=== PATIENT | female | born 1965 | race Caucasian/White ===

== ENCOUNTER 2024-09-15 10:00 | Emergency (ER) | payer OTHER, SELFPAY ==
[2024-09-15] VITALS (20 sets, daily range): BP systolic 116–174; BP diastolic 59–78; PULSE 61–84; RESP 12–21; TEMP 36.8; O2SAT 95–100; BMI 23.8
--- NOTE | 2024-09-15 10:20 | EKG_ITS ---
[address] [address] Test Date: 2024-09-15 Pat Name: Bozena Benjamin Department: Room: Gender: Female [employer]: LOGAN : 1965 Requested By: Order Number: [id number] Reading MD: Ej Monroy MD Measurements Intervals [place] Rate: 64 P: 63 CT: 148 QRS: 71 QRSD: 78 T: 42 QT: 410 QTc: 422 Interpretive Statements Normal sinus rhythm with sinus arrhythmia Electronically Signed On 09-15-2024 11:27:16 PDT by Ej Monroy MD
--- NOTE | 2024-09-15 10:31 | ED.DIZZY ---
HPI - Dizziness General Chief Complaint: Dizziness Stated Complaint: Orthostatic Hypotension Source: patient Mode of arrival: EMS History of Present Illness HPI Narrative: 59-year-old female had total left knee replacement yesterday and discharged uneventfully yesterday presents with a near syncopal episode today whereby patient almost passed out while in the sitting position after taking her pain meds this morning feeling dizzy and lightheaded and having chills and feeling nauseous at this point. Patient denies headache, blurred vision, difficulty swallowing, speaking, weakness, in the arms, legs, gait instability, chest pain, shortness of breath, cough, runny nose, sore throat, vomiting, diarrhea. Other than what is stated 14 point review of system is negative. Related Data Allergies Allergy/AdvReac Type Severity Reaction Status Date / Time No Known Drug Allergies Allergy Verified 09/15/24 10:01 Review of Systems Review of Systems ROS Unobtainable: All systems reviewed & are unremarkable except as noted in HPI and below Patient History Social History Smoking Status: Unknown if ever smoked Smoking Status: Unknown if ever smoked Exam Narrative Exam Narrative: GENERAL: [59] year old patient appears stated age. Well-developed patient, in mild distress. HEAD: Atraumatic. Normocephalic. EYES: Pupils equal round and reactive. Extraocular motions intact. No scleral icterus. No injection or drainage. ENT: Nose without bleeding, purulent drainage. Throat without erythema, tonsillar hypertrophy or exudate. Airway patent. NECK: Trachea midline. Non tender CARDIOVASCULAR: Regular rate and rhythm without murmurs, gallops, or rubs. RESPIRATORY: Clear to auscultation. Breath sounds equal bilaterally. No wheezes, rales, or rhonchi. GASTROINTESTINAL: Abdomen soft, non-tender, nondistended. EXTREMITIES: No edema or joint tenderness. BACK: Nontender without deformity or crepitance. No flank tenderness. NEURO: AOx3. GCS 15 nonfocal neuro exam SKIN: No rash or erythema of visible areas Initial Vital Signs Initial Vital Signs: Vital Signs Temperature 98.3 F 09/15/24 10:14 Pulse Rate 75 09/15/24 10:14 Respiratory Rate 14 09/15/24 10:14 Blood Pressure 139/65 09/15/24 10:14 Pulse Oximetry 97 09/15/24 10:14 Oxygen Delivery Method Room Air 09/15/24 10:14 Course Orders Ordered: ED Orders 09/15/24 10:31 Covid-19 + FLU A/B + RSV - PCR Stat 09/15/24 10:34 XR chest 1V Stat EKG-12 Lead Stat 09/15/24 10:47 XR chest 1V Stat 09/15/24 11:00 Complete Blood Count AUTO DIFF Stat Comprehensive Metabolic Panel Stat Lipase Stat Magnesium Stat NT-proBNP (BNP-Adult 18+) Stat PTT Partial Thromboplastin Bryan Stat Prothrombin Time INR Stat Troponin & CK Cardiac Panel Stat Sodium Chloride (Normal Saline 0.9%) 1,000 mls @ 150 mls/hr IV CONT APOORVA Discontinued Medications Hydromorphone HCl (Hydromorphone 1 Mg Inj) 1 mg IV NOW ONE Stop: 09/15/24 10:32 Last Admin: 09/15/24 10:42 Dose: 1 mg Documented By: MIKE Lactated Ringer's (Lactated Ringers) 1,000 mls @ 1,000 mls/hr IV BOLUS ONE Stop: 09/15/24 11:30 Last Admin: 09/15/24 10:42 Dose: 1,000 mls/hr Documented By: MIKE Vital Signs Vital signs: Vital Signs - 8 hr 09/15/24 10:14 09/15/24 10:24 09/15/24 10:30 Temperature 98.3 F Pulse Rate 75 69 63 Respiratory Rate 14 17 19 Blood Pressure 139/65 Pulse Oximetry 97 100 100 Oxygen Delivery Method Room Air 09/15/24 10:30 09/15/24 11:00 09/15/24 11:00 Temperature Pulse Rate 67 Respiratory Rate 13 Blood Pressure 144/74 H 134/68 Pulse Oximetry 98 Oxygen Delivery Method MDM - Dizziness Lab Data 09/15/24 11:00 09/15/24 11:00 Labs: Lab Results 09/15/24 09/15/24 Range/Units 10:11 11:00 WBC 7.1 (4.5-11.0) X10^3/uL RBC 3.21 L (4.0-5.2) X10^6/uL Hgb 10.1 L (12.0-16.0) g/dL Hct 29.4 L (36-46) % MCV 91.6 (80-100) fL MCH 31.6 (26-34) PG MCHC 34.5 (30-36) % RDW 14.6 (11.6-14.8) % Plt Count 186 (150-400) X10^3/uL Neut % (Auto) 74.4 (50-75) % Lymph % (Auto) 16.5 L (25-40) % [place] % (Auto) 6.7 (3-14) % Eos % (Auto) 1.9 L (2-4) % Baso % (Auto) 0.5 (0-2) % Neut # (Auto) 5300 (8108-3751) /uL Lymph # (Auto) 1200 (4788-7128) /uL [place] # (Auto) 500 (0-900) /uL Eos # (Auto) 100 (0-450) /uL Baso # (Auto) 0 (0-100) /uL PT 11.3 (9.4-12.5) SECONDS INR 1.0 (0.9-1.3) APTT 19 L (25.1-36.5) SECONDS Sodium 139 (137-145) mmol/L Potassium 3.6 (3.4-5.1) mmol/L Chloride 108 H (98-107) mmol/L Carbon Dioxide 27 (22-32) mmol/L BUN 10 (7-17) mg/dL Creatinine 0.59 (0.52-1.04) mg/dL Estimated GFR > 60 (>60) mL/min BUN/Creatinine Ratio 16.9 (6-22) Glucose 100 H (70-99) mg/dL POC Whole Bld Glucose 122 H (70-99) mg/dL Calcium 8.2 L (8.4-10.2) mg/dL Magnesium 2.0 (1.6-2.3) mg/dL Total Bilirubin 0.6 (0.2-1.3) mg/dL AST 34 (14-36) IU/L ALT 21 (<35) IU/L Alkaline Phosphatase 48 (38-126) U/L Total Creatine Kinase 459 H (30-135) U/L Troponin I < 0.012 (0.01-0.034) ng/mL NT-Pro-B Natriuret Pep 462 H (<125) pg/mL Total Protein 5.5 L (6.3-8.2) g/dL Albumin 3.3 L (3.5-5.0) g/dL Globulin 2.2 (1.7-4.1) g/dL Albumin/Globulin Ratio 1.5 (1.0-2.8) Lipase 22 L (23-300) U/L Imaging Data Chest x-ray: Radiologist's Impression: [address] [address] XRay Report Signed Patient: Bozena Benjamin MR#: [id number] : 1965 Acct:[id number] Age/Sex: 59 / F Date of Service: 09/15/24 Loc: ED Accession Number: [id number] Procedure: XR chest 1V Ordering Provider: Ej Marcos D.O. PROCEDURE: XR CHEST 1V INDICATIONS: Chest Pain TECHNIQUE: One view of the chest was acquired. COMPARISON: None. FINDINGS: Surgical changes and devices: None. Lungs and pleura: Lungs are clear. No pleural effusions or pneumothorax. Mediastinum: Mediastinal contours appear normal. Heart size is normal. Bones and chest wall: No suspicious bony lesions. Overlying soft tissues appear unremarkable. IMPRESSION: No acute cardiopulmonary abnormality is seen. ECG Data Interpretation: NSR HR 64 ME 148 QRS [address]-t wave change No previous EKG to compare MDM Narrative Medical decision making narrative: Vital signs, nurse triage note, medication list, previous ER visits, and all imaging studies reviewed. EKG showed note showed normal sinus rhythm, troponin was normal BNP 462 the patient was was not overloaded on exam clinically glucose was 122 hemoglobin 10.1. Patient given 1 L of lactated ringer bolus here. GCS 15 nonfocal neuro exam. Differential diagnosis orthostatic hypotension, viral, dehydration, hypoglycemia, CVA, PE, anemia, sepsis, UTI Discharge Plan Departure Patient Disposition: Home Clinical Impression: Near syncope Instructions: DI for Syncope in Adults (Fainting) Activity Restrictions/Additional Instructions: Return with new or worsening symptoms. Keep hydrated. Follow up with Orthopedic at next scheduled appointment. Stand Alone Forms: Patient Portal/API
--- NOTE | 2024-09-15 10:34 | DI.RAD.S_ITS ---
PROCEDURE: XR CHEST 1V INDICATIONS: Chest Pain TECHNIQUE: One view of the chest was acquired. COMPARISON: None. FINDINGS: Surgical changes and devices: None. Lungs and pleura: Lungs are clear. No pleural effusions or pneumothorax. Mediastinum: Mediastinal contours appear normal. Heart size is normal. Bones and chest wall: No suspicious bony lesions. Overlying soft tissues appear unremarkable. IMPRESSION: No acute cardiopulmonary abnormality is seen. Approved by: Shiva Layton M.D. on 09/15/2024 at 11:23
[2024-09-15] MEDS: HYDROMORPHONE 1 MG INJ IV (10:42)
[2024-09-15] MEDS: LACTATED RINGERS 1,000 ML 1000 ML IV (10:42)
[2024-09-15 11:15] LABS: Add Manual Diff / Slide Review NO; Hematocrit 29.4 % (36-46); Hemoglobin 10.1 g/dL (12.0-16.0); Lymphocytes Absolute Auto 1200 /uL (1100-4500); Mean Corpuscular HGB Conc 34.5 % (30-36); Mean Corpuscular Hemoglobin 31.6 PG (26-34); Mean Corpuscular Volume 91.6 fL (80-100); Platelet Count 186 X10^3/uL (150-400)
[2024-09-15 11:23] LABS: INR 1.0 (0.9-1.3); Prothrombin Time 11.3 SECONDS (9.4-12.5)
[2024-09-15 11:25] LABS: PTT Partial Thromboplastin Tim 19 SECONDS (25.1-36.5)
[2024-09-15 11:28] LABS: Alanine Aminotransferase 21 IU/L (<35); Albumin 3.3 g/dL (3.5-5.0); Albumin Globulin Ratio 1.5 (1.0-2.8); Alkaline Phosphatase 48 U/L (38-126); Blood Urea Nitrogen 10 mg/dL (7-17); Calcium 8.2 mg/dL (8.4-10.2); Carbon Dioxide 27 mmol/L (22-32); Chloride 108 mmol/L (98-107); Creatine Kinase 459 U/L (30-135); Estimated Glomerular Filt Rate > 60 mL/min (>60); Globulin 2.2 g/dL (1.7-4.1); Glucose 100 mg/dL (70-99); HEMOLYSIS 21 (0-50); Lipase 22 U/L (23-300); Magnesium 2.0 mg/dL (1.6-2.3); Potassium 3.6 mmol/L (3.4-5.1); Sodium 139 mmol/L (137-145); Total Protein 5.5 g/dL (6.3-8.2)
[2024-09-15 11:38] LABS: NT-proBNP (BNP-Adult 18+) 462 pg/mL (<125); Troponin I < 0.012 ng/mL (0.01-0.034)
[2024-09-15] MEDS: ASPIRIN EC 81 MG TABLET PO (12:22)
[2024-09-15] MEDS: SODIUM CHLORIDE 0.9% 1,000 ML 150 ML IV (13:18)
[2024-09-15 13:33] LABS: Influenza A - CEPHEID Flu A NEGATIVE (NEGATIVE); Influenza B - CEPHEID Flu B NEGATIVE (NEGATIVE)
[2024-09-15 13:34] LABS: Culture Indicated Urine Cult Not Indicated
[2024-09-15 13:42] LABS: COVID-19 CEPHEID 4-PLEX PCR Negative (Negative)
== END 2024-09-15 14:42 | disposition home or self-care (01) ==
PROVIDERS: Emergency Provider Family Medicine
DX: R55 Syncope and collapse (principal); R42 Dizziness and giddiness; Z98.890 Other specified postprocedural states; R07.9 Chest pain, unspecified
CPT/HCPCS: 71045; 80053; 81003; 81015; 82550; 82962; 83690; 83735; 83880; 84484; 85025; 85610; 85730; 87637; 93005; 93010; 96361; 96374; 99284; J1171